=== PATIENT | male | born 1975 | race Caucasian/White ===

== ENCOUNTER 2020-03-11 23:45 | Emergency (ER) | payer SELFPAY ==
[~2020-03-11] VITALS: Ht 175.3 cm; Wt 83.9 kg
[2020-03-12] MEDS ORDERED: HYDROCODONE/ACETAMINOPHEN 5/325MG TABLET PO ONE (00:15)
[2020-03-12 01:01] VITALS: BP 122/71
== END 2020-03-12 01:02 | disposition home or self-care (01) ==
LOC: ER 23:45
DX: H60.92 Unspecified otitis externa, left ear (principal)
CPT/HCPCS: 99283